=== PATIENT | female | born 1940 | race Caucasian/White ===

== ENCOUNTER 2018-03-31 05:58 | Day surgery (SDC) | payer MEDICARE, OTHER ==
[2018-03-30 12:38] LABS: BASOPHILS # (AUTO) 0.1 X10'3 (0-0.2); BASOPHILS % (AUTO) 1.1 % (0-1); EOSINOPHILS # (AUTO) 0.2 X10'3 (0-0.9); EOSINOPHILS % (AUTO) 1.7 % (0-6); HEMATOCRIT 39.8 % (35.0-45.0); HEMOGLOBIN 13.2 g/dl (12.0-16.0); LYMPHOCYTES # (AUTO) 2.1 X10'3 (1.1-4.8); LYMPHOCYTES % (AUTO) 17.1 % (21-51); MEAN CORPUSCULAR HEMOGLOBIN 31.6 PG (27.0-31.0); MEAN CORPUSCULAR HGB CONC 33.1 % (33.0-36.5); MEAN CORPUSCULAR VOLUME 95.6 FL (78-98); MEAN PLATELET VOLUME 8.1 FL (7.4-10.4); MONOCYTES # (AUTO) 0.5 X10'3 (0-0.9); MONOCYTES % (AUTO) 4.1 % (2-12); NEUTROPHILS # (AUTO) 9.5 X10'3 (1.8-7.7); PLATELET COUNT 333 X10'3 (140-440); RED BLOOD COUNT 4.17 X10'6 (4.20-5.60); RED CELL DISTRIBUTION WIDTH 13.7 % (11.5-14.5); WHITE BLOOD COUNT 12.5 X10'3 (4.5-11.0)
[2018-03-30 12:59] LABS: ALBUMIN 3.1 G/DL (3.4-5.0); ANION GAP 10 (8-16); BLOOD UREA NITROGEN 18 MG/DL (7-18); BUN/CREATININE RATIO 17.8 (6.6-38.0); CALCIUM 9.5 MG/DL (8.5-10.1); CHLORIDE 103 MMOL/L (99-107); CREATININE 1.01 MG/DL (0.40-0.90); GLUCOSE 111 MG/DL (70-104); POTASSIUM 3.9 MMOL/L (3.5-5.1); SODIUM 143 MMOL/L (135-145); TOTAL CARBON DIOXIDE 30.4 MMOL/L (24-32); eGFR 53 ML/MIN
[2018-03-30 13:06] LABS: PARTIAL THROMBOPLASTIN TIME 27 SECONDS (22-32); PROTHROMBIN TIME 10.1 SECONDS (9.0-12.0)
[~2018-03-31] VITALS: Ht 154.9 cm; Wt 60.9 kg
[2018-03-31] VITALS (12 sets, daily range): BP systolic 100–135; BP diastolic 37–61
[2018-03-31] MEDS ORDERED: diphenhydrAMINE 25mg capsule PO PRN (06:15)
[2018-03-31] MEDS ORDERED: LORazepam 0.5 MG tablet PO PRN (06:15)
[2018-03-31] MEDS ORDERED: normal saline 1000ml 1,000 ML IV SCH (06:15)
[2018-03-31] MEDS ORDERED: AMIO200T27 PO (06:55)
[2018-03-31] MEDS ORDERED: AMLO5TAB PO (06:55)
[2018-03-31] MEDS ORDERED: METO25TA6 PO (06:55)
[2018-03-31] MEDS ORDERED: FURO-150 PO (06:55)
[2018-03-31] MEDS ORDERED: LISI-600 PO (06:55)
[2018-03-31] MEDS ORDERED: ATOR10TA87 PO (06:56)
[2018-03-31] MEDS ORDERED: LANTUS SQ (06:56)
[2018-03-31] MEDS ORDERED: BUPR100T16 PO (06:56)
[2018-03-31] MEDS ORDERED: CARV-50 PO (06:56)
[2018-03-31] MEDS ORDERED: ALLO100T PO (06:56)
[2018-03-31] MEDS ORDERED: ASPI81TA52 PO (06:56)
[2018-03-31] MEDS ORDERED: MELO-100 PO (06:56)
[2018-03-31] MEDS ORDERED: iohexol 350 MG/ML 50ML vial IV ONE ×2 (07:31→08:48)
[2018-03-31] MEDS ORDERED: LIDOcaine 1% (10mg/ml)w/preservative injection 20ml MDV ONE (07:31)
[2018-03-31] MEDS ORDERED: heparin 1,000unit/ml 10ml vial 10 ML ONE (07:31)
[2018-03-31] MEDS ORDERED: nitroGLYCERIN-Tridil 50MG/D5W 250 ML IV ONE (07:31)
[2018-03-31] MEDS ORDERED: iohexol 350MG/ML 100ml bottle IV ONE (07:31)
[2018-03-31] MEDS ORDERED: fentaNYL/PF 50MCG/1 ML 2ML syringe ONE (07:31)
[2018-03-31] MEDS ORDERED: midazolam 2 mg/2 ml injection ONE (07:31)
[2018-03-31] MEDS ORDERED: verapamil 2.5 mg/ml inj IV ONE (07:35)
[2018-04-01 09:01] LABS: ISTAT HGB ART 11.6 g/dl (12.0-16.0); ISTAT Hct ART 34 %PCV (35-48); ISTAT Hct MIX 35 %PCV (35-48); ISTAT O2 SATURATION ARTERIAL 91 % (95-98); ISTAT O2 SATURATION MIX VENOUS 52 % (60-80); ISTAT SOURCE ART; ISTAT SOURCE MIX
== END 2018-03-31 14:45 | disposition home or self-care (01) ==
LOC: SSTAY O 05:58
PROVIDERS: ATTEND Internal Medicine Cardiovascular Disease
DX: I25.10 Atherosclerotic heart disease of native coronary artery without angina pectoris (principal); I35.0 Nonrheumatic aortic (valve) stenosis; I48.0 Paroxysmal atrial fibrillation; I49.5 Sick sinus syndrome; E11.9 Type 2 diabetes mellitus without complications; I10 Essential (primary) hypertension; E78.5 Hyperlipidemia, unspecified; G89.29 Other chronic pain; M10.9 Gout, unspecified; I34.2 Nonrheumatic mitral (valve) stenosis; I65.23 Occlusion and stenosis of bilateral carotid arteries; I36.1 Nonrheumatic tricuspid (valve) insufficiency; F32.9 Major depressive disorder, single episode, unspecified; Z86.73 Personal history of transient ischemic attack (TIA), and cerebral infarction without residual deficits; Z86.69 Personal history of other diseases of the nervous system and sense organs; Z86.74 Personal history of sudden cardiac arrest; Z96.652 Presence of left artificial knee joint; Z79.891 Long term (current) use of opiate analgesic; Z95.0 Presence of cardiac pacemaker; Z86.718 Personal history of other venous thrombosis and embolism; Z79.82 Long term (current) use of aspirin; Z79.4 Long term (current) use of insulin; Z79.899 Other long term (current) drug therapy; Z98.890 Other specified postprocedural states; Z83.3 Family history of diabetes mellitus
CPT/HCPCS: 36415; 80048; 82803; 82948; 85014; 85025; 85610; 85730; 93005; 93460; 93567; 99152; 99153; J1644; J2001; J2250; J3010; J7030; Q0163; Q9967; A4620; C1769; J3490

== ENCOUNTER 2018-06-21 11:01 | Inpatient (IN) | payer MEDICARE, OTHER | END 2018-07-09 13:20 | LOC: CICU 2S 06-29 12:45 → SUR 3N 07-01 22:55 → ORTHO 4S 07-04 12:45 → ER 11:01 → ED HOLD 13:10 → ORTHO 4S 17:00 | PROC: 0QS706Z Reposition Left Upper Femur with Intramedullary Internal Fixation Device, Open Approach (ICD-10-PCS; principal; 2018-06-23 14:12) | PROC: 5A1D70Z Performance of Urinary Filtration, Intermittent, Less than 6 Hours Per Day (ICD-10-PCS; 2018-06-23 14:12) | DX: A41.9 Sepsis, unspecified organism (principal); S72.002A Fracture of unspecified part of neck of left femur, initial encounter for closed fracture; D62 Acute posthemorrhagic anemia; E87.2 Acidosis; N17.9 Acute kidney failure, unspecified; I69.998 Other sequelae following unspecified cerebrovascular disease; K52.9 Noninfective gastroenteritis and colitis, unspecified ==

== ENCOUNTER 2018-08-02 12:36 | Emergency (ER) | payer MEDICARE, OTHER ==
[~2018-08-02] VITALS: Ht 162.6 cm; Wt 60.0 kg
[~2018-08-02 12:36] MED LIST: ALLO100T PO; AMIO200T27 PO; AMLO5TAB PO; ASPI81TA52 PO; ATOR40TA PO; BUPR100T16 PO; CARV-50 PO; CLOP75TA35 PO; FURO-150 PO; LANTUS SQ; LISI-600 PO
[2018-08-02 13:30] VITALS: BP 148/68
[2018-08-02 13:35] LABS: BASOPHILS # (AUTO) 0.1 X10'3 (0-0.2); BASOPHILS % (AUTO) 0.8 % (0-1); EOSINOPHILS # (AUTO) 0.1 X10'3 (0-0.9); EOSINOPHILS % (AUTO) 0.9 % (0-6); HEMATOCRIT 24.8 % (35.0-45.0); HEMOGLOBIN 8.4 g/dl (12.0-16.0); LYMPHOCYTES # (AUTO) 0.8 X10'3 (1.1-4.8); LYMPHOCYTES % (AUTO) 7.5 % (21-51); MEAN CORPUSCULAR HEMOGLOBIN 33.6 PG (27.0-31.0); MEAN CORPUSCULAR HGB CONC 33.9 g/dL (33.0-36.5); MEAN CORPUSCULAR VOLUME 99.3 FL (78-98); MEAN PLATELET VOLUME 10.6 FL (7.4-10.4); MONOCYTES # (AUTO) 0.6 X10'3 (0-0.9); MONOCYTES % (AUTO) 5.4 % (2-12); NEUTROPHILS % (AUTO) 85.4 % (42-75); PLATELET COUNT 218 X10'3 (140-440); RED CELL DISTRIBUTION WIDTH 17.5 % (11.5-14.5); WHITE BLOOD COUNT 10.6 X10'3 (4.5-11.0)
[2018-08-02 13:48] LABS: ALANINE AMINOTRANSFERASE 36 U/L (12-78); ALBUMIN 2.9 G/DL (3.4-5.0); ALBUMIN/GLOBULIN RATIO 0.7 (1.1-1.5); ALKALINE PHOSPHATASE 115 IU/L (46-116); ANION GAP 5 (8-16); ASPARTATE AMINO TRANSFERASE 14 U/L (10-37); BILIRUBIN,TOTAL 0.5 MG/DL (0.1-1.0); BLOOD UREA NITROGEN 55 MG/DL (7-18); BUN/CREATININE RATIO 35.7 (6.6-38.0); CALCIUM 9.3 MG/DL (8.5-10.1); CHLORIDE 109 MMOL/L (99-107); CREATININE 1.54 MG/DL (0.40-0.90); GLUCOSE 174 MG/DL (70-104); POTASSIUM 3.6 MMOL/L (3.5-5.1); SODIUM 150 MMOL/L (135-145); TOTAL CARBON DIOXIDE 35.7 MMOL/L (24-32); TOTAL PROTEIN 6.8 G/DL (6.4-8.2); eGFR 33 ML/MIN
[2018-08-02 13:56] LABS: ANISOCYTOSIS 1+; LARGE PLATELETS FEW; PLATELET ESTIMATE NORMAL
[2018-08-02] MEDS ORDERED: normal saline 1000ML IV soln IVB ONE (14:05)
[2018-08-02 14:12] LABS: CLARITY,URINE CLOUDY (Clear); COLOR,URINE YELLOW (Yellow); GLUCOSE, URINE NEGATIVE (Neg); KETONES,URINE NEGATIVE (Neg); LEUKOCYTE ESTERASE ,URINE LARGE (Neg); NITRITES, URINE NEGATIVE (Neg); OCCULT BLOOD,URINE SMALL (Neg); PH,URINE 7.5 (4.8-8.0); PROTEIN,URINE 100 mg/dl (Neg)
[2018-08-02 14:19] LABS: UA COLLECTION TYPE STRAIGHT CATH
[2018-08-02 14:20] LABS: RBC,URINE 0-2 /HPF (0-2); WBC,URINE TNTC /HPF (0-4)
[2018-08-02 14:21] LABS: BACTERIA,URINE 3+ /HPF (Neg); SQUAMOUS EPITHELIAL CELL,UR FEW /LPF (FEW)
[2018-08-02 14:23] LABS: AMORPHOUS PHOSPHATES 1+; TRANSITIONAL EPI CELLS,URINE FEW /HPF; WBC CLUMPS,URINE MODERATE /HPF (NEGATIVE)
[2018-08-02 14:24] LABS: YEAST MODERATE /HPF (NEGATIVE)
[2018-08-02] MEDS ORDERED: sodium chloride 0.45% 1,000 ML IV ONE (15:00)
--- NOTE | 2018-08-02 16:55 | NUR ---
bg [id number]
--- NOTE | 2018-08-02 17:06 | NUR ---
dr. walters authorized [facility]
--- NOTE | 2018-08-02 17:52 | NUR ---
[facility] WAS CALLED TO TRANSPORT PT [facility]IA [facility] BY [facility]. NO AVAILABLE AMBULANCE AT THIS TIME, PUT ON LIST
--- NOTE | 2018-08-02 17:55 | NUR ---
PTS FAMILY GETTING UPSET WANTS PT TO GO BACK TO [facility] NOW. SON IS GOING TO COME PICK PT UP AND TAKE TO [facility]. INFORMED DR. PELAEZ OF ABOVE. OKD.
--- NOTE | 2018-08-02 17:59 | NUR ---
CALLED [facility] AND SPOKE WITH MAADEO GUY NURSE IN TCU TO GIVE REPORT. INFORMED AMADEO THAT PT WILL BE GOING BY PRIVATE VEHICLE AND WHEELCHAIR NEEDS TO BE AT FRONT DOOR.
--- NOTE | 2018-08-02 18:05 | NUR ---
AMADEO INFORMED ME THAT IT WAS FAMILIES IDEA TO COME TO ER. REASSURED FAMILY THAT HER VSS, AND THAT SHE DID NOT NEED TO GO TO THE ER.
--- NOTE | 2018-08-02 18:10 | NUR ---
CALLED [facility] AND SPOKE WITH ADM GORDILLO TO LET HER KNOW PT IS GOING [facility]IA [facility], 3 L/MIN NC. PT GOING TO [facility]
--- NOTE | 2018-08-02 18:22 | NUR ---
[facility] HERE TO TRANSPORT PT.
--- NOTE | 2018-08-02 18:24 | NUR ---
IV PATENT TO RIGHT WRIST.
== END 2018-08-02 18:36 ==
LOC: ER 12:37
DX: E87.0 Hyperosmolality and hypernatremia (principal); E86.0 Dehydration; N39.0 Urinary tract infection, site not specified; I25.10 Atherosclerotic heart disease of native coronary artery without angina pectoris; I11.0 Hypertensive heart disease with heart failure; I50.9 Heart failure, unspecified; E11.9 Type 2 diabetes mellitus without complications; I25.2 Old myocardial infarction; Z86.73 Personal history of transient ischemic attack (TIA), and cerebral infarction without residual deficits; Z98.890 Other specified postprocedural states; Z95.1 Presence of aortocoronary bypass graft; Z79.82 Long term (current) use of aspirin; Z79.4 Long term (current) use of insulin; Z79.899 Other long term (current) drug therapy
CPT/HCPCS: 36415; 71045; 80053; 81001; 82948; 85025; 87088; 93005; 96360; 99284; J7030; P9612; 99283; 99285

== ENCOUNTER 2018-08-19 12:15 | Outpatient (CLI) | payer MEDICARE, OTHER | END 2018-08-19 14:30 | disposition home or self-care (01) | LOC: ORTHO 12:15 | PROVIDERS: ATTEND Orthopaedic Surgery | DX: S42.202G Unspecified fracture of upper end of left humerus, subsequent encounter for fracture with delayed healing (principal) | CPT/HCPCS: 73552; G0463 ==

== ENCOUNTER 2023-02-22 06:20 | Emergency (ER) | payer MEDICARE ==
[~2023-02-22] VITALS: Ht 154.9 cm; Wt 63.6 kg
[~2023-02-22 06:20] MED LIST changes: -ALLO100T PO; -AMLO5TAB PO; +ATOR-2 PO; -ATOR40TA PO; -BUPR100T16 PO; +CHOL100046 PO; -CLOP75TA35 PO; +DAPA10TA PO; +DOCU100C40 PO; +INSU100V9 SQ; -LISI-600 PO; +MULT-1085 PO; +NYSPWD TP; +POTA10CA85 PO; +UBIQ200C4 PO; +ZINC100T2 PO
--- NOTE | 2023-02-22 06:26 | NUR ---
PT UNABLE TO STAND ON STANDING SCALE IN TRIAGE.
[2023-02-22 07:16] LABS: BASOPHILS # (AUTO) 0.2 X10'3 (0-0.2); EOSINOPHILS # (AUTO) 0.2 X10'3 (0-0.9); EOSINOPHILS % (AUTO) 1.8 % (0-6); LYMPHOCYTES # (AUTO) 1.3 X10'3 (1.1-4.8); LYMPHOCYTES % (AUTO) 12.5 % (21-51); MEAN CORPUSCULAR HGB CONC 32.6 g/dL (33.0-36.5); NEUTROPHILS # (AUTO) 7.9 X10'3 (1.8-7.7)
[2023-02-22 07:17] LABS: BASOPHILS % (AUTO) 1.6 % (0-1); HEMATOCRIT 41.3 % (35.0-45.0); HEMOGLOBIN 13.5 g/dl (12.0-16.0); MEAN CORPUSCULAR HEMOGLOBIN 31.8 PG (27.0-31.0); MEAN CORPUSCULAR VOLUME 97.6 FL (78-98); MEAN PLATELET VOLUME 10.9 FL (7.4-10.4); MONOCYTES # (AUTO) 0.8 X10'3 (0-0.9); MONOCYTES % (AUTO) 7.9 % (2-12); NEUTROPHILS % (AUTO) 76.2 % (42-75); PLATELET COUNT 240 X10'3 (140-440); RED BLOOD COUNT 4.23 X10'6 (4.20-5.60); RED CELL DISTRIBUTION WIDTH 15.8 % (11.5-14.5); WHITE BLOOD COUNT 10.4 X10'3 (4.5-11.0)
[2023-02-22 07:39] LABS: ALANINE AMINOTRANSFERASE 24 U/L (12-78); ALBUMIN 2.9 G/DL (3.4-5.0); ALBUMIN/GLOBULIN RATIO 0.7 (1.1-1.5); ALKALINE PHOSPHATASE 80 IU/L (46-116); ANION GAP 11 (8-16); ASPARTATE AMINO TRANSFERASE 19 U/L (10-37); BILIRUBIN,TOTAL 0.9 MG/DL (0.1-1.0); BLOOD UREA NITROGEN 68 MG/DL (7-18); BUN/CREATININE RATIO 30.4 (10.0-20.0); CALCIUM 9.4 MG/DL (8.5-10.1); CHLORIDE 106 MMOL/L (99-107); CREATININE 2.24 MG/DL (0.40-0.90); GLUCOSE 100 MG/DL (70-104); POTASSIUM 4.2 MMOL/L (3.5-5.1); SODIUM 142 MMOL/L (135-145); eCRCL 15 ML/MIN; eGFR 21 ML/MIN
[2023-02-22 07:42] LABS: ELLIPTOCYTES 1+; PLATELET ESTIMATE NORMAL; SCHISTOCYTES FEW
[2023-02-22 07:43] LABS: BURR CELLS 2+
[2023-02-22 07:51] LABS: PRO BRAIN NATRIURETIC PEPTIDE > 30000 PG/ML (0-450)
[2023-02-22] MEDS ORDERED: furosemide 10 MG/1 ML 10ml inj IV ONE (08:15)
--- NOTE | 2023-02-22 09:10 | NUR ---
Pt resting comfortably. Purewick placed. Pt has redness and irritation on coccyx area, picture taken and placed in chart. VSS.
[2023-02-22 13:12] VITALS: BP 119/41; PULSE 70; RESP 22; TEMP 97.5; O2SAT 97
== END 2023-02-22 13:15 | disposition admitted as inpatient to this hospital (09) ==
LOC: ER 06:21
DX: I50.9 Heart failure, unspecified (principal); I10 Essential (primary) hypertension; E11.9 Type 2 diabetes mellitus without complications; Z79.899 Other long term (current) drug therapy; Z88.8 Allergy status to other drugs, medicaments and biological substances
CPT/HCPCS: 36415; 71045; 80053; 83880; 84484; 85008; 85025; 93005; 96374; 99285; J1940

== ENCOUNTER 2023-02-25 10:10 | Outpatient (CLI) | payer MEDICARE ==
[~2023-02-25] VITALS: Ht 147.3 cm; Wt 65.8 kg
[2023-02-25 10:50] LABS: BASOPHILS # (AUTO) 0.1 X10'3 (0-0.2); EOSINOPHILS # (AUTO) 0.1 X10'3 (0-0.9); EOSINOPHILS % (AUTO) 1.1 % (0-6); HEMATOCRIT 41.5 % (35.0-45.0); HEMOGLOBIN 13.6 g/dl (12.0-16.0); LYMPHOCYTES # (AUTO) 0.9 X10'3 (1.1-4.8); LYMPHOCYTES % (AUTO) 8.7 % (21-51); MEAN CORPUSCULAR HEMOGLOBIN 32.2 PG (27.0-31.0); MEAN CORPUSCULAR HGB CONC 32.9 g/dL (33.0-36.5); MEAN PLATELET VOLUME 11.4 FL (7.4-10.4); MONOCYTES # (AUTO) 0.6 X10'3 (0-0.9); MONOCYTES % (AUTO) 5.7 % (2-12); NEUTROPHILS # (AUTO) 8.3 X10'3 (1.8-7.7); NEUTROPHILS % (AUTO) 83.5 % (42-75); PLATELET COUNT 244 X10'3 (140-440); RED BLOOD COUNT 4.24 X10'6 (4.20-5.60); RED CELL DISTRIBUTION WIDTH 16.2 % (11.5-14.5); WHITE BLOOD COUNT 9.9 X10'3 (4.5-11.0)
[2023-02-25 11:03] LABS: APTT 28 SECONDS (22-32); INR 1.1 INR; PROTHROMBIN TIME 12.1 SECONDS (9.0-12.0)
[2023-02-25 11:15] LABS: ANISOCYTOSIS 1+; BURR CELLS 2+; ELLIPTOCYTES FEW; PLATELET ESTIMATE NORMAL
[2023-02-25 11:16] LABS: LARGE PLATELETS FEW
[2023-02-25 11:28] LABS: ALANINE AMINOTRANSFERASE 26 U/L (12-78); ALBUMIN 3.1 G/DL (3.4-5.0); ALBUMIN/GLOBULIN RATIO 0.7 (1.1-1.5); ALKALINE PHOSPHATASE 79 IU/L (46-116); ANION GAP 13 (8-16); ASPARTATE AMINO TRANSFERASE 18 U/L (10-37); BILIRUBIN,TOTAL 1.1 MG/DL (0.1-1.0); BLOOD UREA NITROGEN 75 MG/DL (7-18); BUN/CREATININE RATIO 28.6 (10.0-20.0); CALCIUM 9.3 MG/DL (8.5-10.1); CHLORIDE 105 MMOL/L (99-107); CREATININE 2.62 MG/DL (0.40-0.90); GLUCOSE 108 MG/DL (70-104); POTASSIUM 4.6 MMOL/L (3.5-5.1); SODIUM 141 MMOL/L (135-145); TOTAL CARBON DIOXIDE 23.4 MMOL/L (24-32); TOTAL PROTEIN 7.3 G/DL (6.4-8.2); eGFR 18 ML/MIN
[2023-02-25 11:30] LABS: PRO BRAIN NATRIURETIC PEPTIDE > 30000 PG/ML (0-450)
[2023-02-25] MEDS ORDERED: IODIXANOL 320 MG/ML INFUS..BTL 100ML IV ONE (12:28)
[2023-02-25 14:30] VITALS: PULSE 71; RESP 16; O2SAT 97
[2023-02-25] MEDS ORDERED: albuterol 2.5 MG/3 ML nebule NEB ONE (14:30)
== END 2023-02-25 23:59 | disposition home or self-care (01) ==
LOC: RAD 10:10
PROVIDERS: ATTEND Internal Medicine Cardiovascular Disease
DX: K80.20 Calculus of gallbladder without cholecystitis without obstruction (principal); I08.0 Rheumatic disorders of both mitral and aortic valves; R06.02 Shortness of breath; J98.11 Atelectasis; R09.89 Other specified symptoms and signs involving the circulatory and respiratory systems; I65.23 Occlusion and stenosis of bilateral carotid arteries; M47.814 Spondylosis without myelopathy or radiculopathy, thoracic region
CPT/HCPCS: 36415; 71046; 71275; 74174; 80053; 83880; 85008; 85025; 85610; 85730; 93880; 94060; 94729; 94760; J3490; Q9967; 70496